=== PATIENT | male | born 1975 | race Caucasian/White ===

== ENCOUNTER → 2018-12-15 12:11 | Outpatient (CLI) | payer BC | END | disposition home or self-care (01) | LOC: D.RT 12:11 | PROVIDERS: ATTEND Internal Medicine Pulmonary Disease | DX: J44.9 Chronic obstructive pulmonary disease, unspecified (principal); J93.83 Other pneumothorax ==

== ENCOUNTER 2019-04-22 12:22 | Inpatient (IN) | payer BC ==
[~2019-04-22] VITALS: Ht 180.3 cm; Wt 112.7 kg
[2019-04-22 13:21] LABS: BASOPHILS 0.1 % (0-2); EOSINOPHILS 0.9 % (0-7); HEMATOCRIT 46.5 % (42.0-54.0); HEMOGLOBIN 16.4 g/dL (13.5-17.5); IMMATURE GRANULOCYTES 0.1 % (0-5); LYMPHOCYTES 21.6 % (15-50); MCH 29.8 pg (26.0-34.0); MCHC 35.3 g/dL (31.0-37.0); MCV 84.4 fL (80.0-100.0); MEAN PLATELET VOLUME 9.3 fL (7.4-10.4); MONOCYTES 6.9 % (2-11); NEUTROPHILS 70.4 % (40-80); PLATELET COUNT 180 10x3/uL (130-400); RBC 5.51 10x6/uL (4.20-6.10); RDW 12.5 % (11.5-14.5); WBC 8.7 10x3/uL (4.8-10.8)
[2019-04-22 13:29] LABS: CALC OSMOLALITY 278 mosm/kg (275-300); CARBON DIOXIDE 25.3 mmol/L (21.0-32.0); CHLORIDE - SERUM 104 mmol/L (98-107); CREATININE - SERUM 0.9 mg/dL (0.6-1.3); GLUCOSE 99 mg/dL (74-106); SODIUM 139 mmol/L (136-145); UREA NITROGEN 15 mg/dL (7-18); eGFR NON AFRICAN AMERICAN > 90 mL/min (90-120)
[2019-04-22 13:35] LABS: ALKALINE PHOSPHATASE 91 U/L (46-116); ALT (SGPT) 33 U/L (10-68); BILIRUBIN - TOTAL 0.46 mg/dL (0.2-1.3); PROTEIN - SERUM 8.2 g/dL (6.4-8.2)
[2019-04-22 14:10] VITALS: BP 113/74
--- NOTE | 2019-04-22 14:25 | NUR ---
ASSISTED DR. MOSLEY WITH CHEST TUBE INSERTION AT THIS TIME. PT ON CM, BPM, AND PULSE OX MONITOR PRIOR TO PROCEDURE. PLACED ON 2L O2 VIA NC. ALERT AND ORIENTED X 4, SPEECH CLEAR, ANSWERS QUESTIONS APPROPRIATELY. AT BEDSIDE. CONSENTS SIGNED. WILL CONTINUE TO MONITOR FOR CHANGES.
[2019-04-22 15:00] VITALS: BP 150/89
--- NOTE | 2019-04-22 16:32 | MORECARE ---
CASE MANAGEMENT DISCHARGE SUMMARY PATIENT: FABIAN CHARLES UNIT: [id number] ADM DATE: 04/22/19 AGE: 44 : 73 SEX: M ROOM/BED: D.2214 AUTHOR: ILIANA PETERSEN PHYSICIAN: REFERRING PHYSICIAN: KAL MANZANO MD DATE OF SERVICE: 04/22/19 Discharge Plan Patient Name: FABIAN CHARLES [facility] [facility] 1975 Planned Disposition: Home Anticipated Discharge Date: 04/24/19 Discharge Date: Expected LOS: 2 Initial Reviewer: [email or web address] Initial Review Date: 04/22/2019 Generated: 04/22/19 5:31 pm DCPIA - Discharge Planning Initial Assessment Updated by [email or web address]: Joyce Gutierrez on 04/22/19 4:29 pm * Is the patient Alert and Oriented? Yes * How many steps to enter\exit or inside your home? None * PCP Dr. Jaimes in [place] * Pharmacy [facility] in [place] * Preadmission Environment Home with Family * ADLs Independent * Equipment None * List name and contact numbers for known caregivers / representatives who currently or will assist patient after discharge: rAely Charles - - [phone] * Verbal permission to speak to the caregivers and representatives has been obtained from the patient. Yes * Community resources currently utilized None * Additional services required to return to the preadmission environment? No * Can the patient safely return to the preadmission environment? Yes * Has this patient been hospitalized within the prior 30 days at any hospital? No Patient Name: FABIAN CHARLES Page 14914 at 1632 All edits/amendments must be made on the electronic document DICTATION DATE: 04/22/19 1631 GEAR REPAIR SUPERVISOR: JUDD 04/22/19 163 RPT#: [id number] DC DATE: STATUS: ADM IN [facility] [address] [place] [address] END OF REPORT
--- NOTE | 2019-04-22 16:39 | MORECARE ---
CASE MANAGEMENT DISCHARGE SUMMARY PATIENT: FABIAN CHARLES UNIT: [id number] ADM DATE: 04/22/19 AGE: 44 : 73 SEX: M ROOM/BED: D.2214 AUTHOR: TRINITY,DOC PHYSICIAN: REFERRING PHYSICIAN: KAL MANZANO MD DATE OF SERVICE: 04/22/19 Discharge Plan Patient Name: FABIAN CHARLES Facility: [facility]:[place] : 1975 Planned Disposition: Home Anticipated Discharge Date: 04/24/19 Discharge Date: Expected LOS: 2 Initial Reviewer: [email or web address] Initial Review Date: 04/22/2019 Generated: 04/22/19 5:39 pm DCP- Discharge Planning Updated by [email or web address]: Joyce Gutierrez on 04/22/19 3:[address] DC PLAN: Return home with his independently at dc. ANTICIPATED DC NEEDS: Denied known dc needs. CM met with patient to complete initial dc planning assessment. CM educated patient on the CM role and verbal consent given by patient to complete assessment. CM verified patient's address, phone number, and emergency contact phone numbers. Patient lives at home with his . He reports he is independent in his care at home. At discharge patient plans to return home and feels this is a safe discharge. CM discussed availability of home health, rehab services, and medical equipment. Patient denied known discharge needs at this time. Transportation provider at discharge will be his . CM will continue to follow and will assist as needed with dc plans/needs. Joyce Gutierrez RN, [facility] DCPIA - Discharge Planning Initial Assessment Updated by [email or web address]: Joyce Gutierrez on 04/22/19 4:29 pm * Is the patient Alert and Oriented? Yes * How many steps to enter\exit or inside your home? None * PCP Dr. Jaimes in [place] * Pharmacy [facility] in [place] * Preadmission Environment Home with Family * ADLs Independent * Equipment None * List name and contact numbers for known caregivers / representatives who currently or will assist patient after discharge: Arely Charles - - [phone] * Verbal permission to speak to the caregivers and representatives has been obtained from the patient. Yes * Community resources currently utilized None * Additional services required to return to the preadmission environment? No * Can the patient safely return to the preadmission environment? Yes * Has this patient been hospitalized within the prior 30 days at any hospital? No Last DP export: 04/22/19 3:32 Patient Name: FABIAN CHARLES Page [id number] at 1639 All edits/amendments must be made on the electronic document DICTATION DATE: 04/22/191638 RETAIL ROUTE SUPERVISOR: JUDD 04/22/191638 RPT#: [id number] DC DATE: STATUS: ADM IN [facility] [address] [place] [address] END OF REPORT
--- NOTE | 2019-04-22 16:51 | NUR ---
PT TO ROOM FROM ER ON CART. FAMILY AT BEDSIDE. CHEST TUBE TO RIGHT CHEST NOTED, 20 CM SUCTION, NO OUTPUT. FOAM TAPE DRESSING IN PLACE.
[2019-04-22] MEDS ORDERED: ZANAFLEX4 MG PO (16:58)
[2019-04-22] MEDS ORDERED: NAPROSYN500 MG PO (16:59)
[2019-04-22] MEDS ORDERED: HYDROCODON-ACET15 ML PO (17:02)
[2019-04-22 17:41] VITALS: BP 129/85; BMI 33.5
--- NOTE | 2019-04-22 19:15 | NUR ---
PATIENT ALERT AND ORIENTED. AT BEDSIDE. PATIENT HAS HOB ELEVATED. NOT WEARING NASAL CANNULA, SATURATION CHECKED AND 96%. CANNULA AT BEDSIDE FOR PRN. RIGHT SIDED CHEST TUBE. PATENT AND SUCTIONING AT 20. LUNG SOUNDS CLEAR TO AUSCULTATION. EDUCATED PATIENT ON POSSIBLE SURGERY TOMORROW. PATIENT VERBALIZED UNDERSTANDING. DENIES FURTHER NEEDS AT THIS TIME. CALL LIGHT IN REACH. CPOC.
[2019-04-22 20:00] VITALS: BP 115/68
--- NOTE | 2019-04-22 21:30 | NUR ---
PATIENT COMPLAINS OF PAIN. ADMINISTERED PAIN MEDICINE PER ORDER. CPOC.
[2019-04-23] VITALS (11 sets, daily range): BP systolic 114–139; BP diastolic 61–79
[2019-04-23 04:50] LABS: BASOPHILS 0.1 % (0-2); EOSINOPHILS 1.1 % (0-7); HEMATOCRIT 47.5 % (42.0-54.0); HEMOGLOBIN 16.2 g/dL (13.5-17.5); IMMATURE GRANULOCYTES 0.3 % (0-5); LYMPHOCYTES 27.8 % (15-50); MCH 29.3 pg (26.0-34.0); MCHC 34.1 g/dL (31.0-37.0); MCV 86.1 fL (80.0-100.0); MEAN PLATELET VOLUME 9.3 fL (7.4-10.4); MONOCYTES 8.8 % (2-11); NEUTROPHILS 61.9 % (40-80); PLATELET COUNT 194 10x3/uL (130-400); RBC 5.52 10x6/uL (4.20-6.10); RDW 12.6 % (11.5-14.5); WBC 8.7 10x3/uL (4.8-10.8)
[2019-04-23 05:10] LABS: CALC OSMOLALITY 278 mosm/kg (275-300); CALCIUM 8.6 mg/dL (8.5-10.1); CARBON DIOXIDE 29.6 mmol/L (21.0-32.0); CHLORIDE - SERUM 101 mmol/L (98-107); GLUCOSE 120 mg/dL (74-106); POTASSIUM - SERUM 3.9 mmol/L (3.5-5.1); SODIUM 138 mmol/L (136-145); UREA NITROGEN 17 mg/dL (7-18); eGFR NON AFRICAN AMERICAN 86 mL/min (90-120)
[2019-04-23 05:13] LABS: INR 1.14 (0.85-1.17); PROTIME 14.1 SECONDS (11.6-15.0)
--- NOTE | 2019-04-23 09:00 | NUR ---
ASSESSMENT PER FLOW SHEET. PT IS WITHOUT DISTRESS.NPO FOR PROCEDURE.CALL FOR NEEDS
[2019-04-23 09:20] LABS: HEMATOCRIT 50.5 % (42.0-54.0); HEMOGLOBIN 17.5 g/dL (13.5-17.5); MCH 29.9 pg (26.0-34.0); MCHC 34.7 g/dL (31.0-37.0); MCV 86.2 fL (80.0-100.0); MEAN PLATELET VOLUME 9.1 fL (7.4-10.4); RBC 5.86 10x6/uL (4.20-6.10); RDW 12.8 % (11.5-14.5); WBC 9.4 10x3/uL (4.8-10.8)
[2019-04-23 09:33] LABS: ALBUMIN 4.2 g/dL (3.4-5.0); ALKALINE PHOSPHATASE 89 U/L (46-116); ALT (SGPT) 35 U/L (10-68); CALC OSMOLALITY 281 mosm/kg (275-300); CALCIUM 8.8 mg/dL (8.5-10.1); CARBON DIOXIDE 28.7 mmol/L (21.0-32.0); CHLORIDE - SERUM 101 mmol/L (98-107); CREATININE - SERUM 0.9 mg/dL (0.6-1.3); GLUCOSE 120 mg/dL (74-106); POTASSIUM - SERUM 4.4 mmol/L (3.5-5.1); PROTEIN - SERUM 8.4 g/dL (6.4-8.2); SODIUM 139 mmol/L (136-145); UREA NITROGEN 20 mg/dL (7-18); eGFR NON AFRICAN AMERICAN > 90 mL/min (90-120)
[2019-04-23 12:57] LABS: APPEARANCE CLEAR (CLEAR); BACTERIA FEW /hpf (NEGATIVE); BILIRUBIN NEGATIVE (NEGATIVE); COLOR DK YELLOW (YELLOW); EPITHELIAL CELLS OCC /hpf (0-5); GLUCOSE NEGATIVE (NEGATIVE); KETONE NEGATIVE (NEGATIVE); MUCUS >1+ /lpf (NONE SEEN); NITRITE NEGATIVE (NEGATIVE); PROTEIN NEGATIVE (NEGATIVE); RED CELLS - URINE RARE /hpf (0-5); SPECIFIC GRAVITY 1.025 (1.005-1.020); UROBILINOGEN NORMAL (NORMAL); WHITE CELLS - URINE 0-5 /hpf (NEGATIVE)
--- NOTE | 2019-04-23 13:19 | NUR ---
TO OR VIA BED.
--- NOTE | 2019-04-23 16:38 | NUR ---
PT ARRIVED TO UNIT VIA BED. ON NONREBREATHER. CONNECTED TO ICU MONITORS. RIJ CVL WITH PLASMOLYTE AT 30ML/HR. R CT X 1 TO 20CM SUCTION. NO AIR LEAK NOTED. DRESSING C/D/I. LEFT RADIAL MYRIAM SECURED IN PLACE WITH WRIST PROTECTOR. LIMA CATHETER IN PLACE WITH YELLOW URINE NOTED. SAFETY MEASURES IN PLACE. WILL CONTINUE TO MONITOR.
--- NOTE | 2019-04-23 17:20 | NUR ---
FAMILY AT BEDSIDE.
--- NOTE | 2019-04-23 18:30 | NUR ---
DR. PERALTA PAGED AT THIS TIME.
--- NOTE | 2019-04-23 19:15 | NUR ---
DR. PERALTA PAGED AGAIN AWAITING CALL BACK.
[2019-04-24] VITALS (21 sets, daily range): BP systolic 119–146; BP diastolic 58–86; Ht 180.3 cm; Wt 112.7 kg
--- NOTE | 2019-04-24 00:24 | NUR ---
DR. CARDENAS NOTIFIED OF IONIZED CALCIUM OF 0.58, NEW ORDER RECEIVED TO REPEAT ABG NOW AND AT 0700. NEW ORDER TO TREAT CA IF IT IS ACCURATE AT 0.58
[2019-04-24 04:35] LABS: BASOPHILS 0.1 % (0-2); EOSINOPHILS 0 % (0-7); HEMATOCRIT 47.2 % (42.0-54.0); IMMATURE GRANULOCYTES 0.3 % (0-5); LYMPHOCYTES 8.5 % (15-50); MCH 29.5 pg (26.0-34.0); MCHC 33.9 g/dL (31.0-37.0); MCV 86.9 fL (80.0-100.0); MEAN PLATELET VOLUME 9.4 fL (7.4-10.4); NEUTROPHILS 82.1 % (40-80); PLATELET COUNT 158 10x3/uL (130-400); RBC 5.43 10x6/uL (4.20-6.10); RDW 12.8 % (11.5-14.5)
[2019-04-24 04:45] LABS: WBC 13.8 10x3/uL (4.8-10.8)
[2019-04-24 05:15] LABS: ALBUMIN 3.4 g/dL (3.4-5.0); ALKALINE PHOSPHATASE 68 U/L (46-116); ALT (SGPT) 29 U/L (10-68); BILIRUBIN - TOTAL 0.81 mg/dL (0.2-1.3); CALC OSMOLALITY 280 mosm/kg (275-300); CALCIUM 8.9 mg/dL (8.5-10.1); CARBON DIOXIDE 28.9 mmol/L (21.0-32.0); CHLORIDE - SERUM 103 mmol/L (98-107); CREATININE - SERUM 0.9 mg/dL (0.6-1.3); GLUCOSE 145 mg/dL (74-106); POTASSIUM - SERUM 4.2 mmol/L (3.5-5.1); PROTEIN - SERUM 7.5 g/dL (6.4-8.2); SODIUM 138 mmol/L (136-145); UREA NITROGEN 19 mg/dL (7-18); eGFR NON AFRICAN AMERICAN > 90 mL/min (90-120)
--- NOTE | 2019-04-24 10:39 | NUR ---
0700 PT RECIEVED UP IN CHAIR R IJ CVL DRESSING CDI SEE IV FLOWSHEET R CT TO 20CM SUCTION NO AIR LEAK, ON VAPOTHERM, LIMA DRAINING YELLOW URINE 0800 ATE JELLO FOR BREAKFAST 1000 LIMA DCD TIP INTACT URINAL PROVIDED
--- NOTE | 2019-04-24 17:03 | OP ---
PATIENT NAME: FABIAN CHIN MEDICAL RECORD: [id number] :73 LOCATION:D[facility] D.[facility] ADMISSION DATE:04/22/19 SURGEON: FABIO CARDENAS MD DATE OF OPERATION: 04/23/2019 SURGEON: Fabio Cardenas MD BRAKE OPERATOR HEAVY DUTY: None. PROCEDURES PERFORMED: 1. Right video-assisted thoracoscopic surgery with apical bleb stapling, talc pleurodesis. 2. Bronchoscopy. PREOPERATIVE DIAGNOSIS: Recurrent spontaneous pneumothorax. POSTOPERATIVE DIAGNOSES: Recurrent spontaneous pneumothorax, plus bullous emphysema. ANESTHESIA: General endotracheal anesthesia, double lumen. COMPLICATIONS: None. SPECIMENS: None. BLOOD LOSS: Minimal. CONDITION: Stable. DISPOSITION: CV ICU. OPERATIVE FINDINGS: 1. Apical blebs were identified, stapled. 2. Mechanical pleurodesis of the apex, but 3 grams of talc also placed due to recurrent pneumothorax. OPERATIVE INDICATION: Recurrent pneumothorax. PROCEDURE NOTE IN DETAIL: The patient was brought to the operating suite. Double-lumen endotracheal tube was placed, position confirmed with bronchoscopy. The patient was returned to left lateral decubitus position. Left chest was ventilated. Right lung deflated. Chest tube removed. Right chest sterilely prepped and draped. Two working ports were made, one below the tip of the scapula and one more posteriorly. Chest was entered. The superior segment of lower lobe and the entire lower lobe appeared to be normal. The right middle lobe also appeared to be normal, but the apex of the right had clear bullous disease. It was grasped working posteriorly. It was stapled off. Mechanical pleurodesis of the apex down to about the fourth rib level was performed using electrocautery on the inside of each rib surface. The chest tube was placed through the anterior working port. Posterior working port was closed. Talc was insufflated. The scope was reinserted to confirm good talc placement and the right lung was inflated. Wounds were closed. The patient extubated and to CV ICU stable. TRANSINT:[id number] Voice Confirmation ID: [id number] DOCUMENT ID: [id number] OPERATIVE REPORT [id number] FABIAN CHIN FABIO CARDENAS MD at 1703 CC: BHARGAV CISSE MD [id number] DICTATION DATE: 04/23/191826 SOCIAL WORKER AIDE: 04/23/19 193 ADM IN [facility] [address] [facility]
--- NOTE | 2019-04-24 17:59 | NUR ---
1200 PT ATE 50% LUNCH 1730 PT ATE 100% DINNER PT REPOSITIONED IN CHAIR THROUGOUT DAY, USES IS WITH ENCOURAGEMENT 500-750 X10 HOURLY
--- NOTE | 2019-04-24 21:00 | NUR ---
PT UP TO BEDSIDE TO USE URINAL. VOIDED 400 ML. O2 HFNC 8L. USING MORPHINE POWER GENERATION TECHNICIAN AND GETTING TORADOL FOR BREAK THRU PAIN. STATES THAT IT IS EFFECTIVE.
[2019-04-25] VITALS (25 sets, daily range): BP systolic 98–133; BP diastolic 33–84
--- NOTE | 2019-04-25 04:30 | NUR ---
OOB TO VOID. STEADY ON HIS FEET. TO RADIOLOGY FOR PA AND LAT. TOLERATED WELL. BATHED SELF WITH MINIMAL ASSISTANCE
[2019-04-25 06:42] LABS: ALKALINE PHOSPHATASE 58 U/L (46-116); BILIRUBIN - TOTAL 0.73 mg/dL (0.2-1.3); CALC OSMOLALITY 278 mosm/kg (275-300); CALCIUM 8.4 mg/dL (8.5-10.1); CARBON DIOXIDE 29.6 mmol/L (21.0-32.0); CHLORIDE - SERUM 102 mmol/L (98-107); CREATININE - SERUM 0.9 mg/dL (0.6-1.3); GLUCOSE 147 mg/dL (74-106); PROTEIN - SERUM 6.9 g/dL (6.4-8.2); SODIUM 137 mmol/L (136-145); UREA NITROGEN 17 mg/dL (7-18); eGFR NON AFRICAN AMERICAN > 90 mL/min (90-120)
[2019-04-25 06:45] LABS: ALT (SGPT) 20 U/L (10-68)
[2019-04-25 06:54] LABS: BASOPHILS 0 % (0-2); EOSINOPHILS 1.5 % (0-7); HEMATOCRIT 42.9 % (42.0-54.0); HEMOGLOBIN 14.1 g/dL (13.5-17.5); IMMATURE GRANULOCYTES 0.2 % (0-5); LYMPHOCYTES 12.7 % (15-50); MCH 29.1 pg (26.0-34.0); MCHC 32.9 g/dL (31.0-37.0); MCV 88.5 fL (80.0-100.0); MEAN PLATELET VOLUME 9.3 fL (7.4-10.4); MONOCYTES 8.8 % (2-11); NEUTROPHILS 76.8 % (40-80); PLATELET COUNT 168 10x3/uL (130-400); RBC 4.85 10x6/uL (4.20-6.10); RDW 12.7 % (11.5-14.5)
[2019-04-25 06:55] LABS: WBC 10.3 10x3/uL (4.8-10.8)
--- NOTE | 2019-04-25 07:57 | NUR ---
0700 PT RECIEVED ALERT AND ORIENTED VSS O2 8L, R IJ CVL DRESSING CDI, SEE IV FLOWSHEET, R INCISION DRESSING CDI, ASSISTED UP TO CHAIR, TOLERATED WELL, WILL CONTINUE TO MONITOR
--- NOTE | 2019-04-25 11:17 | NUR ---
Nutrition Follow-up: Eating well. Reports eating majority of breakfast this AM. Diet: Regular Wt: 240# Last BM: 04/21 per pt Labs reviewed Meds reviewed -Continue current diet as tolerated. -RD following.
--- NOTE | 2019-04-25 17:35 | NUR ---
0900 TOOK AM MEDS 1100 AMBULATED WITH PT 1300 ATE 100% LUNCH 1500 AMBULATED WITH PT 1700 ATE 100% DINNNER
--- NOTE | 2019-04-25 18:25 | NUR ---
CVL DRESSING CHANGED
--- NOTE | 2019-04-25 19:30 | NUR ---
PT IS SITTING IN CHAIR AT BEDSIDE. STATES THAT HE WANTS TO SIT UP FOR A WHILE LONGER. GIVEN TORADOL PER REQUEST. HE STATES THAT IT WORKS BETTER THAN THE MORPHINE ENGRAVER HAND HARD METALS.
--- NOTE | 2019-04-25 20:45 | NUR ---
ASSISTED BACK TO BED. PT MOVES INDEPENDENTLY WITH A STEADY GAIT. DENIES NEEDS.
--- NOTE | 2019-04-25 21:25 | NUR ---
PT HAVING A NOSE BLEED. HOB ELEVATED AND A COLD CLOTH WITH PRESSURE APPLIED TO NOSE. BLEEDING STOPPED AFTER 3-4 MIN. HOB TO CONTINUE TO BE ELEVATED.
--- NOTE | 2019-04-25 21:50 | NUR ---
RESTING QUIETLY. NO SIGN OF DISTRESS. HOB REMAINS ELEVATED.
[2019-04-26] VITALS (18 sets, daily range): BP systolic 105–126; BP diastolic 51–71
[2019-04-26 06:03] LABS: BASOPHILS 0.1 % (0-2); EOSINOPHILS 3.2 % (0-7); HEMATOCRIT 38.7 % (42.0-54.0); HEMOGLOBIN 12.6 g/dL (13.5-17.5); IMMATURE GRANULOCYTES 0.3 % (0-5); MCH 28.7 pg (26.0-34.0); MCHC 32.6 g/dL (31.0-37.0); MCV 88.2 fL (80.0-100.0); MEAN PLATELET VOLUME 8.8 fL (7.4-10.4); MONOCYTES 10.1 % (2-11); NEUTROPHILS 70.3 % (40-80); PLATELET COUNT 155 10x3/uL (130-400); RBC 4.39 10x6/uL (4.20-6.10); RDW 12.8 % (11.5-14.5); WBC 9.6 10x3/uL (4.8-10.8)
[2019-04-26 06:35] LABS: ALBUMIN 2.7 g/dL (3.4-5.0); ALKALINE PHOSPHATASE 51 U/L (46-116); ALT (SGPT) 19 U/L (10-68); BILIRUBIN - TOTAL 0.48 mg/dL (0.2-1.3); CALC OSMOLALITY 285 mosm/kg (275-300); CALCIUM 8.1 mg/dL (8.5-10.1); CARBON DIOXIDE 30.8 mmol/L (21.0-32.0); CHLORIDE - SERUM 103 mmol/L (98-107); CREATININE - SERUM 0.7 mg/dL (0.6-1.3); GLUCOSE 117 mg/dL (74-106); POTASSIUM - SERUM 3.8 mmol/L (3.5-5.1); PROTEIN - SERUM 6.3 g/dL (6.4-8.2); SODIUM 141 mmol/L (136-145); eGFR NON AFRICAN AMERICAN > 90 mL/min (90-120)
[2019-04-26 06:36] LABS: UREA NITROGEN 24 mg/dL (7-18)
--- NOTE | 2019-04-26 15:09 | NUR ---
0700-RECIEVED AWAKE AND ALERT-SITTING AT SIDE OF BED-CHEST TUBE TO STAIGHT DRAINAGE-NO AIRLEAK AND SCANT DRAINAGE-NOTED 1145-DR TANNER AT [facility] -SPOKE WITH PT AND REGARDING PLAN OF CARE-R L ATERAL CHEST TUBE D/C'D BY DR TANNER-CHEST DRGS REMOVED-INCISION INTACT AND WELL APPROXIMATED-NOTED RAISED RASH AROUND CHEST TUBE ENTRY=TAPE IRRITATION-SITE ?-TEGADERM APPLIED AVOIDING IRRITATION SITES 1400-PT STATED NORCO TABLET HELPED WITH PAIN RELIEF-R IJ D/C WITH TIP INTACT PER PROTOCOL
--- NOTE | 2019-04-26 18:49 | NUR ---
1814-CHEST TUBE INSERTION SITE DRG CHANGED-SMALL AMOUNT SEROUS
[2019-04-27 00:01] VITALS: BP 116/73
[2019-04-27 02:03] VITALS: BP 119/73
[2019-04-27 04:32] LABS: BASOPHILS 0.2 % (0-2); EOSINOPHILS 5.1 % (0-7); HEMATOCRIT 38.2 % (42.0-54.0); HEMOGLOBIN 12.5 g/dL (13.5-17.5); IMMATURE GRANULOCYTES 0.4 % (0-5); LYMPHOCYTES 21.5 % (15-50); MCH 28.9 pg (26.0-34.0); MCHC 32.7 g/dL (31.0-37.0); MCV 88.2 fL (80.0-100.0); MEAN PLATELET VOLUME 9.2 fL (7.4-10.4); MONOCYTES 10.2 % (2-11); NEUTROPHILS 62.6 % (40-80); PLATELET COUNT 182 10x3/uL (130-400); RBC 4.33 10x6/uL (4.20-6.10); RDW 12.7 % (11.5-14.5); WBC 8.1 10x3/uL (4.8-10.8)
[2019-04-27 04:51] LABS: ALBUMIN 2.6 g/dL (3.4-5.0); ALKALINE PHOSPHATASE 58 U/L (46-116); BILIRUBIN - TOTAL 0.36 mg/dL (0.2-1.3); CALC OSMOLALITY 283 mosm/kg (275-300); CALCIUM 8.4 mg/dL (8.5-10.1); CHLORIDE - SERUM 104 mmol/L (98-107); CREATININE - SERUM 0.7 mg/dL (0.6-1.3); GLUCOSE 114 mg/dL (74-106); POTASSIUM - SERUM 3.7 mmol/L (3.5-5.1); PROTEIN - SERUM 6.4 g/dL (6.4-8.2); SODIUM 141 mmol/L (136-145); UREA NITROGEN 19 mg/dL (7-18); eGFR NON AFRICAN AMERICAN > 90 mL/min (90-120)
[2019-04-27 04:56] LABS: ALT (SGPT) 24 U/L (10-68)
--- NOTE | 2019-04-27 06:00 | NUR ---
PT IN CHAIR AT BEDSIDE AFTER GOING FOR AN XRAY. BATHED SELF. DRSG CHANGED. AMBULATED INDEPENDENTLY WITHOUT ASSISTANCE.
[2019-04-27 08:00] VITALS: BP 119/73
[2019-04-27 09:00] VITALS: BP 130/70
--- NOTE | 2019-04-27 09:58 | NUR ---
NUTRITION F/U PT REPORTS 100% INTAKE BREAKFAST THIS AM. WILL CONTINUE TO PROVIDE REG DIET, HONOR FOOD PREFERENCES. RD FOLLOWING
[2019-04-27] MEDS ORDERED: ASPIRIN EC81 M1 PO (09:59)
[2019-04-27] MEDS ORDERED: HYDROCODON-ACE1 EA10 PO (09:59)
--- NOTE | 2019-04-27 13:11 | NUR ---
0730-AMBULATING IN RM EASILY-DENIES ANY SOB-SR MONITOR 0930-CV SERVICES AT BEDSIDE-SPOKE WITH PT AND REGARDING DISCHARGE INSTRUCTIONS -R CHEST INSERTION YOCL-[id number]-XDWUR RAISED SKIN RASH RED CIRCULAR TO TO INSERTION OF PARAMETER 1 INCH -SEEN BY DR TANNER-NEOMYCIN OINTMENT-4X4 AND BODY KERLIX TO SECURE- ABLE TO DEMONSTRATE PLACEMENT OF OINTMENT -NOT TO SURGICAL INCISION SITE 1030-DISCHARGED HOME WITH
--- NOTE | 2019-04-27 14:31 | MORECARE ---
CASE MANAGEMENT DISCHARGE SUMMARY PATIENT: FABIAN CHARLES UNIT: [id number] ADM DATE: 04/22/19 AGE: 44 : 73 SEX: M [facility] AUTHOR: TRINITY,DOC PHYSICIAN: REFERRING PHYSICIAN: KAL MANZANO MD DATE OF SERVICE: 04/27/19 Discharge Plan Patient Name: FABIAN CHARLES Facility: [facility]:[place] : 1975 Planned Disposition: Home Anticipated Discharge Date: 04/24/19 Discharge Date: 04/27/2019 Expected LOS: 2 Initial Reviewer: [email or web address] Initial Review Date: 04/22/2019 Generated: 04/27/19 3:31 pm DCP- Discharge Planning Updated by [email or web address]: Joyce Gutierrez on 04/22/19 3:[address] DC PLAN: Return home with his independently at dc. ANTICIPATED DC NEEDS: Denied known dc needs. CM met with patient to complete initial dc planning assessment. CM educated patient on the CM role and verbal consent given by patient to complete assessment. CM verified patient's address, phone number, and emergency contact phone numbers. Patient lives at home with his . He reports he is independent in his care at home. At discharge patient plans to return home and feels this is a safe discharge. CM discussed availability of home health, rehab services, and medical equipment. Patient denied known discharge needs at this time. Transportation provider at discharge will be his . CM will continue to follow and will assist as needed with dc plans/needs. Joyce Gutierrez RN, [facility] DCPIA - Discharge Planning Initial Assessment Updated by [email or web address]: Joyce Gutierrez on 04/22/19 4:29 pm * Is the patient Alert and Oriented? Yes * How many steps to enter\exit or inside your home? None * PCP Dr. Jaimes in [place] * Pharmacy [facility] in [place] * Preadmission Environment Home with Family * ADLs Independent * Equipment None * List name and contact numbers for known caregivers / representatives who currently or will assist patient after discharge: Arely Charles - - [phone] * Verbal permission to speak to the caregivers and representatives has been obtained from the patient. Yes * Community resources currently utilized None * Additional services required to return to the preadmission environment? No * Can the patient safely return to the preadmission environment? Yes * Has this patient been hospitalized within the prior 30 days at any hospital? No Last DP export: 04/22/19 3:39 Patient Name: FABIAN CHARLES Page [id number] at 1431 All edits/amendments must be made on the electronic document DICTATION DATE: 04/27/191430 FUNCTIONAL SKILLS TUTOR: JUDD 04/27/191430 RPT#: [id number] DC DATE:04/27/19 STATUS: DIS IN [facility] [address] [place] [address] END OF REPORT
--- NOTE | 2019-04-27 14:40 | MORECARE ---
CASE MANAGEMENT DISCHARGE SUMMARY PATIENT: FABIAN CHARLES UNIT: [id number] ADM DATE: 04/22/19 AGE: 44 : 73 SEX: M ROOM/BED: D.[facility] AUTHOR: TRINITY,DOC PHYSICIAN: REFERRING PHYSICIAN: KAL MANZANO MD DATE OF SERVICE: 04/27/19 Discharge Plan Patient Name: FABIAN CHARLES Facility: [facility]:[place] : 1975 Planned Disposition: Home Anticipated Discharge Date: 04/24/19 Discharge Date: 04/27/2019 Expected LOS: 2 Initial Reviewer: [email or web address] Initial Review Date: 04/22/2019 Generated: 04/27/19 3:40 pm DCP- Discharge Planning Updated by [email or web address]: Joyce Gutierrez on 04/22/19 3:[address] DC PLAN: Return home with his independently at dc. ANTICIPATED DC NEEDS: Denied known dc needs. CM met with patient to complete initial dc planning assessment. CM educated patient on the CM role and verbal consent given by patient to complete assessment. CM verified patient's address, phone number, and emergency contact phone numbers. Patient lives at home with his . He reports he is independent in his care at home. At discharge patient plans to return home and feels this is a safe discharge. CM discussed availability of home health, rehab services, and medical equipment. Patient denied known discharge needs at this time. Transportation provider at discharge will be his . CM will continue to follow and will assist as needed with dc plans/needs. Joyce Gutierrez RN, [facility] DCPIA - Discharge Planning Initial Assessment Updated by [email or web address]: Joyce Gutierrez on 04/22/19 4:29 pm * Is the patient Alert and Oriented? Yes * How many steps to enter\exit or inside your home? None * PCP Dr. Jaimes in [place] * Pharmacy [facility] in [place] * Preadmission Environment Home with Family * ADLs Independent * Equipment None * List name and contact numbers for known caregivers / representatives who currently or will assist patient after discharge: Arely Charles - - [phone] * Verbal permission to speak to the caregivers and representatives has been obtained from the patient. Yes * Community resources currently utilized None * Additional services required to return to the preadmission environment? No * Can the patient safely return to the preadmission environment? Yes * Has this patient been hospitalized within the prior 30 days at any hospital? No Last DP export: 04/27/19 1:31 Patient Name: FABIAN CHARLES Page [id number] at 1440 All edits/amendments must be made on the electronic document DICTATION DATE: 04/27/191439 TEACHER ADULT EDUCATION: JUDD 04/27/19 1440 RPT#: [id number] DC DATE:04/27/19 STATUS: DIS IN [address] [place] [address] END OF REPORT
== END 2019-04-27 11:00 | disposition home or self-care (01) | DRG 164 ==
LOC: D.ER 12:22 → D.MS 15:07 → D.CVICU 15:07
PROVIDERS: Emergency Medicine; Family Medicine Adult Medicine; Internal Medicine Cardiovascular Disease; Thoracic Surgery (Cardiothoracic Vascular Surgery); ADMIT Internal Medicine Nephrology; ATTEND Internal Medicine Nephrology
PROC: 0W9900Z Drainage of Right Pleural Cavity with Drainage Device, Open Approach (ICD-10-PCS; principal; 2019-04-22)
PROC: 3E0L4GC Introduction of Other Therapeutic Substance into Pleural Cavity, Percutaneous Endoscopic Approach (ICD-10-PCS; 2019-04-23)
PROC: 0BJ08ZZ Inspection of Tracheobronchial Tree, Via Natural or Artificial Opening Endoscopic (ICD-10-PCS; 2019-04-23)
PROC: 0BQK4ZZ Repair Right Lung, Percutaneous Endoscopic Approach (ICD-10-PCS; 2019-04-23 15:00)
DX: J43.9 Emphysema, unspecified (principal); J93.12 Secondary spontaneous pneumothorax; E66.9 Obesity, unspecified; Z68.33 Body mass index [BMI] 33.0-33.9, adult; Z72.0 Tobacco use

== ENCOUNTER → 2019-05-16 09:49 | Outpatient (CLI) | payer BC ==
[2019-04-24 12:36] VITALS: BMI 33.6
[~2019-05-16 09:49] MED LIST: ASPIRIN EC81 M1 PO; HYDROCODON-ACE1 EA10 PO; HYDROCODON-ACET15 ML PO; NAPROSYN500 MG PO; ZANAFLEX4 MG PO
== END | disposition home or self-care (01) ==
LOC: D.RAD 09:45
PROVIDERS: ATTEND Thoracic Surgery (Cardiothoracic Vascular Surgery)
DX: J93.9 Pneumothorax, unspecified (principal)